=== PATIENT | female | born 1940 | race Caucasian/White ===

== ENCOUNTER → 2017-02-10 12:55 | Outpatient (CLI) | payer MEDICARE | END | disposition home or self-care (01) | LOC: D.MAMMO 01-31 11:00 | DX: Z12.31 Encounter for screening mammogram for malignant neoplasm of breast (principal) ==

== ENCOUNTER → 2017-02-21 14:06 | Outpatient (CLI) | payer MEDICARE | END | disposition home or self-care (01) | LOC: D.MAMMO 10:30 | DX: R92.8 Other abnormal and inconclusive findings on diagnostic imaging of breast (principal) ==

== ENCOUNTER 2018-05-09 19:00 | Outpatient (CLI) | payer MEDICARE | END 2018-05-09 23:59 | disposition home or self-care (01) | LOC: D.MAMMO 19:00 | PROVIDERS: ATTEND Nurse Practitioner | DX: Z12.31 Encounter for screening mammogram for malignant neoplasm of breast (principal) ==

== ENCOUNTER → 2018-07-25 10:18 | Outpatient (CLI) | payer MEDICARE ==
--- NOTE | ~2018-07-25 | EC ---
PATIENT:GRACIELA CHAVEZ DATE OF SERVICE: 07/25/18 SEX: F MEDICAL RECORD: [id number] DATE OF : 42 [facility] AGE OF PATIENT: 78 ADMISSION DATE: 07/25/18 REFERRING PHYSICIAN: INTERPRETING PHYSICIAN: HOWRAD GONSALES MD ECHOCARDIOGRAM REPORT ECHO CHARGES 4 ECHO COMPLETE Date: 07/25/18 CLINICAL DIAGNOSIS: ABNORMAL EKG/ANGINA/MURMUR H/O HTN ECHOCARDIOGRAPHIC MEASUREMENTS (adult normal given) AC root (d.<3.7cm) 3.0 cm LV Septum d (<1.2 cm> 1.1 cm Valve Excursion 1.9 cm LV Septum (systole) 1.5 cm Left Atria (s.<4.0cm> 4.0 cm LVPW d(<1.2cm) 1.1 cm RV (d.<2.3cm) 2.1 cm LVPW (sytole) 1.8 cm LV diastole(<5.6CM) 4.6 cm MV E-F(>70mm/sec) cm LV systole 2.6 cm LVOT Diameter 1.9 cm MV exc.(>10mm) cm Est.ejection fraction (50-75%) % DOPPLER: LVIT cm/sec A 72.0 cm/sec E 54.0 cm/sec LA cm/sec RVSP 40.4 mmHg LVOT 84.0 cm/sec AOP1/2T m/s Asc. Ao 117 cm/sec RVOT 59.0 cm/sec RA cm/sec PA 84.0 cm/sec AV Gradient Peak 5.4 mmHg AV Mean 2.9 mmHg AV Area 2.1 cm MV Gradient Peak 3.3 mmHg MV Mean 1.4 mmHg MV Area cm COMMENTS: OP - HC Take Away Attendant: Lay FONTAINE HULL Experimental Rocket Sled Mechanic: 1 Dr. Gonsales TAPE# PACS Pericardial Effusion N DATE OF SERVICE: 07/25/2018 PROCEDURE: Echocardiogram. FINDINGS: 1. Left ventricular chamber size is within normal limits. Left ventricular systolic function is normal. Overall ejection fraction estimated at 60%. 2. Left atrium is upper limits of normal at 4.0 cm. Right atrium and right ventricular chamber sizes are mildly dilated. 3. 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 ECHOCARDIOGRAM REPORT [id number] SCOTT,GRACIELA K 4. Valvular structures have normal structure and motion. 5. Doppler interrogation reveals moderate tricuspid regurgitation, no other valvular insufficiency or stenosis. Pulmonary systolic pressure is estimated at 40 mmHg. 6. No evidence of pericardial effusion or left ventricular thrombus. TRANSINT:[id number] Voice Confirmation ID: [id number] DOCUMENT ID: [id number] HOWARD GONSALES MD CC: [id number] DICTATION DATE: 07/31/18 1029 SHIPFITTERS SUPERVISOR: 07/31/18 1133 DEP CLI 07/25/18 [place] [id number] [place] [id number]
== END | disposition home or self-care (01) ==
LOC: D.HCCARDIO 10:18
PROVIDERS: ATTEND Internal Medicine Cardiovascular Disease
DX: R07.9 Chest pain, unspecified (principal)

== ENCOUNTER 2018-08-09 11:31 | Outpatient (CLI) | payer MEDICARE | END 2018-08-09 16:40 | disposition home or self-care (01) | LOC: D.CATH 11:31 | DX: I20.9 Angina pectoris, unspecified (principal); I10 Essential (primary) hypertension; E78.5 Hyperlipidemia, unspecified; R94.31 Abnormal electrocardiogram [ECG] [EKG] ==